=== PATIENT | female | born 1945 | race Caucasian/White ===

== ENCOUNTER → 2019-01-25 14:47 | Outpatient (CLI) | payer MEDICARE, BC, SELFPAY ==
--- NOTE | 2019-01-25 | DI.ECHO.S_ITS ---
[facility] +---------+ : : [address] : [place] [address] : : : : [id number] : : : : Phone: [phone]+ Echocardiogram Report + + :Name: CIRO GUZMÁN Study Date: 01/25/2019 Height: 61 in : :[facility] Exam Location: [facility] Weight: 210 lb : : Gender: Female BSA: 1.9 m2 : :: 1945 Age: 73 yrs BP: 130/63 mmHg: :Reason For Study: Palpitations : :Ordering Physician: Yvrose : :Dayana Performed By: Amna Page : + + Interpretation Summary The left ventricle is normal in size. The ejection fraction is estimated to be 65-70%. There has been no significant change in LVEF since the previous study. The right ventricle is normal in size and function. There is no hemodynamically significant valvular aortic stenosis. There is mild aortic regurgitation. Compared to the prior echo study, there has been no change in the severity of aortic regurgitation. Mild atherosclerotic plaque(s) in the aortic arch. Procedure: A two-dimensional transthoracic echocardiogram with color flow and Doppler was performed. The study quality was technically adequate. Comparison is made with the echocardiogram of 01/04/2014. The patient was in normal sinus rhythm during the exam. Left Ventricle: The left ventricle is normal in size. Proximal septal thickening is noted. There is no echo evidence for significant left ventricular outflow tract obstruction. There is no thrombus. The ejection fraction is estimated to be 65-70%. There has been no significant change since the previous study. There are no focal wall motion abnormalities. Diastolic parameters suggest a relaxation abnormality of the left ventricle, consistent with probable normal filling pressures. Right Ventricle: The right ventricle is normal in size and function. Atria: Both atria are normal in size. The left atrium has significantly decreased in size since the prior echo exam. There is no Doppler evidence for an interatrial shunt. Mitral Valve: There is mild mitral annular calcification. The mitral valve leaflets are slightly calcified. Redundant elongated chordae are noted. There is trace mitral regurgitation. Aortic Valve: The aortic valve is trileaflet. The aortic valve is mildly calcified. Movement of known coronary is slightly diminished. No significant aortic stenosis. The peak aortic velocity is 2.2 m/sec. The peak aortic velocity on the previous exam was 2.1 m/sec. There is no hemodynamically significant valvular aortic stenosis. There is mild aortic regurgitation. Compared to the prior echo study, there has been no change in the severity of aortic regurgitation. Tricuspid Valve: The tricuspid valve is normal in structure and function. Pulmonary artery pressures cannot be estimated because of the lack of a measurable TR jet velocity. There is trace tricuspid regurgitation. Pulmonic Valve: The pulmonic valve is not well visualized. There is trace pulmonic regurgitation. Great Vessels: The aortic root is normal size. The ascending aorta is normal in size. Mild atherosclerotic plaque(s) in the aortic arch. The pulmonary artery is not well visualized, but is probably normal size. The IVC is of normal diameter and collapses greater than 50% with a sniff. This suggests a low right atrial pressure of 3 mm Hg. Pericardium/ Pleura There is no pericardial effusion. Can not rule out possible left sided pleural effusion. MMode/2D Measurements & Calculations LVIDd: 4.8 cm LVOT diam: 1.9 cm LVIDs: 3.0 cm Ao root diam: 2.9 cm FS: 36.7 % asc Aorta Diam: 3.0 cm EPSS: 0.00 cm IVSd: 0.78 cm LVPWd: 0.84 cm LV morales. diameter/BSA (cm/m^2): 2.5 LV sys. diameter/BSA (cm/m^2): 1.6 LA A2 area: 24.2 cm2 RA long axis: 4.8 cm LA A4 area: 17.6 cm2 RA area: 13.8 cm2 LA length (vol): 5.8 cm RA vol: 33.9 ml LA vol: 62.4 ml RA : 17.6 ml/m2 LA vol index: 32.3 ml/m2 IVC diam: 1.5 cm RVD1 (basal): 3.6 cm TAPSE: 2.6 cm Doppler Measurements & Calculations Ao V2 max: 215.8 cm/sec LVOT Max Norman: 90.2 cm/sec Ao V2 mean: 143.9 cm/sec LV V1 max P.3 mmHg Ao max P.6 mmHg LV V1 VTI: 21.3 cm Ao mean P.3 mmHg BELL(I,D): 1.3 cm2 Ao V2 VTI: 45.9 cm BELL(V,D): 1.2 cm2 sev ratio: 0.46 BELL indexed to BSA (cm^2/m^2): 0.68 AI P1/2t: 501.1 msec AI dec slope: 253.3 cm/sec2 MV E max norman: 90.9 cm/sec PA V2 max: 71.2 cm/sec MV A max norman: 119.8 cm/sec PA V2 mean: 56.3 cm/sec MV E/A: 0.76 PA mean P.3 mmHg Med Peak E' Norman: 5.8 cm/sec PA Accel Time: 0.09 sec E/E' med: 15.7 Lat Peak E' Norman: 7.7 cm/sec E/E' lat: 11.7 E/e' average: 13.7 MV dec time: 0.29 sec MV P1/2t: 85.9 msec MV P1/2t max norman: 90.8 cm/sec SV(LVOT): 60.0 ml MVA(P1/2t): 2.6 cm2 Reading Physician:ASUNCION
== END ==
PROVIDERS: PCP Family Medicine; Visit Provider Family Medicine
DX: I35.2 Nonrheumatic aortic (valve) stenosis with insufficiency (principal); R00.2 Palpitations; I70.0 Atherosclerosis of aorta
CPT/HCPCS: 93306

== ENCOUNTER → 2021-10-16 11:36 | Outpatient (CLI) | payer MEDICARE, BC, SELFPAY ==
--- NOTE | 2021-10-16 11:44 | DI.MG.S_ITS ---
BILATERAL DIGITAL DIAGNOSTIC MAMMOGRAM 3D/2D: 10/16/2021 CLINICAL: Intermitten pain in bilateral breasts. Comparison is made to exams dated: 03/05/2021 mammogram, 02/21/2020 mammogram, 11/30/2018 mammogram, and 08/27/2016 mammogram - [facility]. There are scattered fibroglandular elements in both breasts. No significant masses, calcifications, or other findings are seen in either breast. IMPRESSION: NEGATIVE There is no abnormality seen in either breast to correspond with the diffuse pain, however, clinical followup is recommended. There is no mammographic evidence of malignancy. A 1 year screening mammogram is recommended. This exam was interpreted at Station ID: [id number]. NOTE: For mammograms, a report in lay terms will be sent to the patient. Approximately 15% of breast malignancies will not be visualized mammographically. In the management of a palpable breast mass, a negative mammogram must not discourage biopsy of a clinically suspicious lesion. Electronically Signed By: Michel sandra/chanelle:10/16/2021 12:43:23 letter sent: Clinical Evaluation ACR BI-RADS Category 1: Negative 3341F
== END ==
PROVIDERS: PCP Family Medicine; Referring Provider Family Medicine; Visit Provider Family Medicine
DX: N64.4 Mastodynia (principal)
CPT/HCPCS: 77066; G0279

== ENCOUNTER → 2022-11-20 14:03 | Outpatient (CLI) | payer MEDICARE, BC, SELFPAY ==
--- NOTE | 2022-11-20 | DI.MG.S_ITS ---
BILATERAL DIGITAL SCREENING MAMMOGRAM 3D/2D WITH CAD: 11/20/2022 CLINICAL: Routine screening. Family history of breast cancer. Comparison is made to exams dated: 10/16/2021 mammogram - [facility], 03/05/2021 mammogram, and 02/21/2020 mammogram - [facility]. There are scattered areas of fibroglandular density in both breasts (category b / 25%-50% glandular tissue). Current study was also evaluated with a Computer Aided Detection (CAD) system. No significant masses, calcifications, or other findings are seen in either breast. There has been no significant interval change. IMPRESSION: NEGATIVE There is no mammographic evidence of malignancy. A 1 year screening mammogram is recommended. Based on the Tyrer Cuzick model (a risk assessment model) the patient's lifetime risk is 10.6% and her 10 year risk is 0.0%. According to the ACR, ACS, and NCCN guidelines, an annual breast MRI exam along with mammogram is recommended if the patient's lifetime risk is 20% or greater. This exam was interpreted at Station ID: [id number]. NOTE: For mammograms, a report in lay terms will be sent to the patient. Approximately 15% of breast malignancies will not be visualized mammographically. In the management of a palpable breast mass, a negative mammogram must not discourage biopsy of a clinically suspicious lesion. Electronically Signed By: Antoine smith/chanelle:11/20/2022 16:31:32 letter sent: Normal Exam ACR BI-RADS Category 1: Negative 3341F
== END ==
PROVIDERS: PCP Nurse Practitioner Family; Referring Provider Nurse Practitioner Family; Visit Provider Nurse Practitioner Family
DX: Z12.31 Encounter for screening mammogram for malignant neoplasm of breast (principal); Z80.3 Family history of malignant neoplasm of breast
CPT/HCPCS: 77063; 77067

== ENCOUNTER → 2023-12-10 14:02 | Outpatient (CLI) | payer MEDICARE, BC, SELFPAY ==
--- NOTE | 2023-12-10 | DI.MG.S_ITS ---
BILATERAL DIGITAL SCREENING MAMMOGRAM 3D/2D WITH CAD: 12/10/2023 CLINICAL: Routine screening. Family history of breast cancer. Comparison is made to exams dated: 11/20/2022 mammogram, 10/16/2021 mammogram - [facility], and 03/05/2021 mammogram - [facility]. There are scattered areas of fibroglandular density in both breasts (category b / 25%-50% glandular tissue). Current study was also evaluated with a Computer Aided Detection (CAD) system. No significant masses, calcifications, or other findings are seen in either breast. There has been no significant interval change. IMPRESSION: NEGATIVE There is no mammographic evidence of malignancy. A 1 year screening mammogram is recommended. Based on the Tyrer Cuzick model (a risk assessment model) the patient's lifetime risk is 9.0% and her 10 year risk is 0.0%. According to the ACR, ACS, and NCCN guidelines, an annual breast MRI exam along with mammogram is recommended if the patient's lifetime risk is 20% or greater. This exam was interpreted at Station ID: [id number]. NOTE: For mammograms, a report in lay terms will be sent to the patient. Approximately 15% of breast malignancies will not be visualized mammographically. In the management of a palpable breast mass, a negative mammogram must not discourage biopsy of a clinically suspicious lesion. Electronically Signed By: Robert cohen/chanelle:12/10/2023 17:11:12 letter sent: Normal Exam ACR BI-RADS Category 1: Negative 3341F
== END ==
PROVIDERS: PCP Nurse Practitioner Family; Referring Provider Nurse Practitioner Family; Visit Provider Nurse Practitioner Family
DX: Z12.31 Encounter for screening mammogram for malignant neoplasm of breast (principal); Z80.3 Family history of malignant neoplasm of breast; R92.323 Mammographic fibroglandular density, bilateral breasts
CPT/HCPCS: 77063; 77067

== ENCOUNTER → 2024-02-02 12:25 | Outpatient (CLI) | payer MEDICARE, BC, SELFPAY ==
--- NOTE | 2024-02-02 12:26 | DI.ECHO.S_ITS ---
[facility] : : [address] : [place] [address] : : [id number] : : Phone: [phone] Echocardiogram Report + + :Name: CIRO GUZMÁN Study Date: 02/02/2024 Height: 60.5 in: :[facility] ReadingLocation: Weight: 207 lb : : Gender: Female BSA: 1.9 m2 : :: 1945 Age: 78 yrs BP: 138/71 mmHg: :Reason For Study: DYSPNEA ON EXERTION/ MURMUR : :Ordering Physician: ADIEL, : :HITESH Performed By: Melissa Marte : :Referring: HITESH ROSALES : + + Interpretation Summary 1) Normal left ventricular thickness, size, wall motion, and systolic function (EF 60-65%). 2) Normal right ventricular size and function. 3) Moderate aortic stenosis present (valve area 1.1cm2, mean gradient 25mmHg, severity ratio 0.36). 4) There is mild to moderate aortic regurgitation. 5) Compared to the Echo done 01/25/2019, moderate aortic stenosis is present on this study. Procedure: A two-dimensional transthoracic echocardiogram with color flow and Doppler was performed. The study quality was technically adequate. Comparison is made with the echocardiogram of 01/25/2019. The patient was in sinus rhythm with heart rates between 55-67 bpm during the exam. Left Ventricle: The left ventricle is normal in size and wall thickness. The ejection fraction is estimated to be 60-65%. Left ventricular systolic function appears normal without focal wall motion abnormalities. Diastolic function could not be accurately assessed due to contradictory data. Right Ventricle: The right ventricle is normal in size and function. Atria: The left atrial size is normal. Right atrial size is normal. There is no Doppler evidence for an interatrial shunt. Mitral Valve: The mitral valve leaflets appear mildly thickened, but open well. There is mild mitral annular calcification. There is trace mitral regurgitation. Aortic Valve: The aortic valve is moderately calcified. There is moderate to severely reduced leaflet mobility. The peak aortic velocity is 3.5 m/sec. The aortic valve mean gradient is 25 mmHg. The calculated aortic valve area is 1.1 cm2. There is mild to moderate aortic regurgitation. Tricuspid Valve: The tricuspid valve is normal in structure and function. There is mild tricuspid regurgitation. Pulmonic Valve: The pulmonic valve leaflets are thin and pliable; valve motion is normal. There is mild pulmonic regurgitation. Great Vessels: The aortic root is normal size. The dimensions of the ascending aorta are normal. The IVC is of normal diameter and collapses greater than 50% with a sniff. This suggests a low right atrial pressure of 3 mm Hg. Pericardium/ Pleura There is no pericardial effusion. There is no pleural effusion. MMode/2D Measurements & Calculations LVIDd: 5.0 cm LVOT diam: 2.0 cm LVIDs: 2.7 cm Ao root diam: 3.0 cm FS: 45.2 % asc Aorta Diam: 3.1 cm IVSd: 0.97 cm Ao Arch Diam (Prox Trans): 2.6 cm LVPWd: 0.88 cm LV morales. diameter/BSA (cm/m^2): 2.6 LV sys. diameter/BSA (cm/m^2): 1.4 LA A2 area: 18.3 cm2 RA long axis: 5.3 cm LA A4 area: 21.7 cm2 RA area: 17.6 cm2 LA length (vol): 6.1 cm RA vol: 49.9 ml LA vol: 55.8 ml RA : 26.2 ml/m2 LA vol index: 29.3 ml/m2 IVC diam: 1.4 cm RVD1 (basal): 3.5 cm RVD2 (mid): 3.0 cm TAPSE: 2.2 cm Doppler Measurements & Calculations Ao V2 max: 353.1 cm/sec LVOT Max Norman: 107.8 cm/sec Ao V2 mean: 220.6 cm/sec LV V1 max P.7 mmHg Ao max P.8 mmHg LV V1 VTI: 29.5 cm Ao mean P.3 mmHg BELL(I,D): 1.1 cm2 Ao V2 VTI: 81.5 cm BELL(V,D): 0.93 cm2 sev ratio: 0.36 BELL indexed to BSA (cm^2/m^2): 0.58 AI P1/2t: 531.5 msec AI dec slope: 242.7 cm/sec2 MV E max norman: 121.3 cm/sec PA V2 max: 111.2 cm/sec MV A max norman: 155.0 cm/sec PA V2 mean: 77.3 cm/sec MV E/A: 0.78 PA mean P.6 mmHg Med Peak E' Norman: 7.5 cm/sec PA pr(Accel): 27.6 mmHg E/E' med: 16.2 Lat Peak E' Norman: 6.7 cm/sec E/E' lat: 18.1 E/e' average: 17.1 MV dec time: 0.20 sec SV(OT): 89.8 ml Reading Physician:03:56 PM
== END ==
PROVIDERS: PCP Nurse Practitioner Family; Referring Provider Internal Medicine Cardiovascular Disease; Visit Provider Internal Medicine Cardiovascular Disease
DX: I08.3 Combined rheumatic disorders of mitral, aortic and tricuspid valves (principal); R06.09 Other forms of dyspnea; R01.1 Cardiac murmur, unspecified
CPT/HCPCS: 93306

== ENCOUNTER → 2024-12-14 08:55 | Outpatient (CLI) | payer MEDICARE, BC, SELFPAY ==
--- NOTE | 2024-12-14 08:56 | DI.ECHO.S_ITS ---
[facility] : : [address] : [place] : : [id number] : : Phone: [phone] Echocardiogram Report + + :Name: CIRO GUZMÁN Study Date: 12/14/2024 Height: 60 in : :[facility] ReadingLocation: Weight: 210 lb : : Gender: Female BSA: 1.9 m2 : :: 1945 Age: 79 yrs BP: 114/65 mmHg: :Reason For Study: AORTIC VALVE STENOSIS : :Ordering Physician: ADIEL, : :HITESH Performed By: Melissa Marte : :Referring: HITESH ROSALES : + + Interpretation Summary 1) Normal left ventricular thickness, size, wall motion, and systolic function (EF 60-65%). 2) Normal right ventricular size and function. 3) Moderate aortic stenosis present (valve area 1.1cm2, mean gradient 20mmHg, severity ratio 0.4). 4) There is mild to moderate aortic regurgitation. 5) Compared to the Echo done 02/02/2024, no significant change. Procedure: A two-dimensional transthoracic echocardiogram with color flow and Doppler was performed. The study quality was technically adequate. Comparison is made with the echocardiogram of 02/02/2024. The patient was in sinus rhythm with heart rates between 54-65 bpm during the exam. Left Ventricle: The left ventricle is normal in size. There is normal left ventricular wall thickness. The ejection fraction is estimated to be 60-65%. Left ventricular systolic function appears normal without focal wall motion abnormalities. Right Ventricle: The right ventricle is normal in size and function. Atria: The left atrial size is normal. Right atrial size is normal. There is no Doppler evidence for an interatrial shunt. Mitral Valve: The mitral valve leaflets appear moderately thickened, but open well. There is mild mitral annular calcification. The mitral valve mean gradient is 2.1 mmHg. There is no mitral regurgitation noted. Aortic Valve: The aortic valve is trileaflet. The aortic valve is moderately calcified. There is moderately reduced leaflet mobility. The peak aortic velocity is 3.0 m/sec. The peak aortic velocity on the previous exam was 3.5 m/sec. The aortic valve mean gradient is 20 mmHg. The calculated aortic valve area is 1.1 cm2. There is mild to moderate aortic regurgitation. Tricuspid Valve: The tricuspid valve leaflets are thin and pliable. There is trace tricuspid regurgitation. Pulmonary artery pressures cannot be estimated because of the lack of a measurable TR jet velocity. Pulmonic Valve: The pulmonic valve leaflets are thin and pliable; valve motion is normal. There is no pulmonic valvular regurgitation. Great Vessels: The aortic root is normal size. The dimensions of the ascending aorta are normal. The IVC is of normal diameter and collapses greater than 50% with a sniff. This suggests a low right atrial pressure of 3 mm Hg. Pericardium/ Pleura There is no pericardial effusion. There is no pleural effusion. MMode/2D Measurements & Calculations LVIDd: 4.3 cm LVOT diam: 2.0 cm LVIDs: 2.7 cm Ao root diam: 2.9 cm FS: 38.7 % asc Aorta Diam: 3.2 cm IVSd: 1.0 cm Ao Arch Diam (Prox Trans): 2.6 cm LVPWd: 0.97 cm LV morales. diameter/BSA (cm/m^2): 2.3 LV sys. diameter/BSA (cm/m^2): 1.4 LA A2 area: 19.0 cm2 RA long axis: 5.2 cm LA A4 area: 13.7 cm2 RA area: 15.0 cm2 LA length (vol): 5.5 cm RA vol: 36.8 ml LA vol: 40.1 ml RA : 19.3 ml/m2 LA vol index: 21.0 ml/m2 IVC diam: 1.7 cm RVD1 (basal): 3.2 cm RVD2 (mid): 2.8 cm TAPSE: 2.4 cm Doppler Measurements & Calculations Ao V2 max: 297.2 cm/sec LVOT Max Norman: 109.9 cm/sec Ao V2 mean: 201.3 cm/sec LV V1 max P.8 mmHg Ao max P.3 mmHg LV V1 VTI: 28.1 cm Ao mean P.6 mmHg BELL(I,D): 1.2 cm2 Ao V2 VTI: 71.0 cm BELL(V,D): 1.1 cm2 sev ratio: 0.40 BELL indexed to BSA (cm^2/m^2): 0.62 AI P1/2t: 542.0 msec AI dec slope: 234.9 cm/sec2 MV E max norman: 97.8 cm/sec PA V2 max: 92.8 cm/sec MV A max norman: 139.1 cm/sec PA V2 mean: 62.9 cm/sec MV E/A: 0.70 PA mean P.8 mmHg Med Peak E' Norman: 5.3 cm/sec PA pr(Accel): 21.2 mmHg E/E' med: 18.4 Lat Peak E' Norman: 5.9 cm/sec E/E' lat: 16.5 E/e' average: 17.4 MV dec time: 0.25 sec MVA(VTI): 1.8 cm2 MV V2 mean: 63.0 cm/sec SV(LVOT): 84.2 ml MV mean P.1 mmHg MV V2 VTI: 45.6 cm Reading Physician:11:36 AM
== END ==
PROVIDERS: PCP Nurse Practitioner Family; Referring Provider Internal Medicine Cardiovascular Disease; Visit Provider Internal Medicine Cardiovascular Disease
DX: I35.2 Nonrheumatic aortic (valve) stenosis with insufficiency (principal); I34.81 Nonrheumatic mitral (valve) annulus calcification
CPT/HCPCS: 93306